=== PATIENT | female | born 1990 | race Two or more races ===

== ENCOUNTER 2023-06-20 00:54 | Observation (INO) | payer MEDICAID | END 2023-06-20 01:47 | disposition home or self-care (01) | LOC: LDRP 00:54 | PROVIDERS: ADMIT Obstetrics & Gynecology; ATTEND Obstetrics & Gynecology | DX: O62.9 Abnormality of forces of labor, unspecified (principal); O23.42 Unspecified infection of urinary tract in pregnancy, second trimester; N39.0 Urinary tract infection, site not specified; Z3A.23 23 weeks gestation of pregnancy | CPT/HCPCS: 59025; 81002; 94762; G0378 ==

== ENCOUNTER 2025-07-14 02:31 | Observation (INO) | payer MEDICAID ==
[2025-07-14] MEDS ORDERED: ACETAMINOPHEN 500 MG TAB or CAP PO ONE (04:00)
--- NOTE | 2025-07-14 04:19 | DVHDS2 ---
Physician Discharge Progress N Final Diagnosis: Patient eloped. Declined to sign AMA form Operations or Procedures: Operations or Procedures SUBJECTIVE Tova Loza is a 34 yo with IUP at 38w6d presenting for contractions Patient states that she has been sameer since Wednesday 07/11. They got stronger and closer together this evening and she has not been able to be comfortable. Patient denies leaking fluid and endorses positive movement. Patient states she has had some spotting, but no active vaginal bleeding. PNC: in [place] LMP: 10/15/24 (EDC: 07/22/25) OB Hx: prev c/s x 2, short interval Review of Systems: Neuro: No complaints Heart: No complaints Lungs: No complaints GI: No complaints : Has pain with contractions as described above Skin: No complaints Extremities: No complaints OBJECTIVE VSS FHR: Baseline: 130 Variability: Moderate Accelerations: Present Decelerations: Absent Category: 1 UCs: every 3-5 min, irregular Neuro: A&O x4. Affect appropriate, appears uncomfortable with contractions Heart: Regular rate and rhythm Lungs: Clear bilaterally GI: Gravid. No tenderness : SVE discussed and performed with consent by RN. / Skin: Dry and intact. No rashes or lesions Extremities: Cap refill WNL. ASSESSMENT 34 yo with IUP at 38w6d Category 1 Tracing Prior c/s x2 PLAN -Discussed POC with Dr French who states to discharge patient with instructions to present to a high risk facility if contractions persist or worsen -Extensively discussed options with patient including (but not limited to) IV hydration with a repeat SVE to assess labor status, pain management options, and recommendation from MD. Patient initially did not want to leave hospital on MD recommendation and agreed to IV hydration and pain management with repeat SVE, but then declined and stated she did want to leave so she could drive to [place]. Discussed importance of reactive NST to ensure wellbeing and importance of SVE to assess labor status. Patient verbalizes understanding and states she wants to leave AMA. Patient eloped without signing form and before further discussion could occur. Condition on Discharge: Undetermined Disposition: Eloped Discharge Instructions: Activity: No Restrictions, As Tolerated Medications: No change. Follow Up Care: Specialist: Patient left AMA Discharge Statement: Patient was advised to return to the ER or call 911 if any headaches, dizziness, shortness of breath, chest pain, abdominal pain, bleeding, fevers, or worsening of medical condition. Patient was counseled about treatment plan, medications, possible side effects, patientverbalized understanding. All questions were answered to the best of my ability. This encounter took greater then 30 minutes in planning, reviewing documentation, counseling the patient, and discussing with other team members. Visit Coding OBGYN Date of Service: Jul 14, 2025 Billing Provider: ARMAND ROBLES CNM MEDICAL AFFAIRS LEADER Common Visit Codes: [id number] INP/OBS CARE(HIGH) MEDICAL AFFAIRS LEADER Procedure Codes: 96855-77- NON-STRESS TEST ARMAND ROBLES CNM Jul 14, 2025 04:19
== END 2025-07-14 03:54 | disposition home or self-care (01) ==
LOC: LDRP 02:31
PROVIDERS: ADMIT Obstetrics & Gynecology; ATTEND Obstetrics & Gynecology
DX: O62.9 Abnormality of forces of labor, unspecified (principal); O34.219 Maternal care for unspecified type scar from previous cesarean delivery; Z3A.38 38 weeks gestation of pregnancy
CPT/HCPCS: 59025; 81002; 94760; G0378